=== PATIENT | male | born 1990 | race Asian ===

== ENCOUNTER 2019-10-23 14:18 | Emergency (ER) | payer OTHER ==
--- NOTE | 2019-10-23 14:29 | ED ---
Complex/Multi-Sys Presentation - HPI Summary HPI Summary: 29 year old M presenting to [facility] with a chief complaint of a headache secondary to a cough since 4 days ago, worse since today. Patient reports initially having a sore throat and fever. He was tested 4 days ago at [place] for COVID-19 and the results are pending. He denies any recent fevers or exposure to COVID-19. The patient has been self quarantining. Medication list reviewed. Allergy list reviewed. - History Of Current Complaint Time Seen by Provider: 10/23/19 14:27 Hx Obtained From: Patient Onset/Duration: Lasting Days, Still Present Timing: Constant - Allergies/Home Medications Allergies/Adverse Reactions: Allergies Allergy/AdvReac Type Severity Reaction Status Date / Time No Known Allergies Allergy Verified 10/23/19 15:01 Home Medications: Home Medications Benzonatate CAP* [Tessalon 100 MG CAP*] 100 mg PO TID PRN 10 Days #30 cap [Rx] Benzonatate CAP* [Tessalon 100 MG CAP*] 100 mg PO TID PRN 10 Days #30 cap [Rx] PMH/Surg Hx/FS Hx/Imm Hx Endocrine/Hematology History: Denies: Hx Diabetes Cardiovascular History: Denies: Hx Hypertension - Surgical History Surgical History: None - Family History Known Family History: Negative: Hypertension - Social History Alcohol Use: None Hx Substance Use: No Substance Use Type: Reports: None Hx Tobacco Use: No Smoking Status (MU): Never Smoked Tobacco Review of Systems Positive: Fever Positive: Sore Throat Positive: Cough Positive: Headache All Other Systems Reviewed And Are Negative: Yes Physical Exam - Summary Physical Exam Summary: Constitutional: Well-developed, Well-nourished, Alert. (-) Distressed Skin: Warm, Dry HENT: Normocephalic; Atraumatic Eyes: Conjunctiva normal Neck: Musculoskeletal ROM normal neck. (-) JVD, (-) Stridor, (-) Nuchal rigidity Cardio: Rhythm regular, rate normal, Heart sounds normal; Intact distal pulses; Radial pulses are 2+ and symmetric. (-) Murmur Pulmonary/Chest wall: Effort normal. (-) Respiratory distress, (-) Wheezes, (-) Rales Abd: Soft, (-) tenderness, (-) Distension, (-) Guarding, (-) Rebound Musculoskeletal: (-) Edema Lymph: (-) Cervical adenopathy Neuro: Alert, Oriented x3 Psych: Mood and affect Normal Triage Information Reviewed: Yes Vital Signs Reviewed: Yes Procedures - Sedation Patient Received Moderate/Deep Sedation with Procedure: No Diagnostics - Laboratory Lab Statement: Any lab studies that have been ordered have been reviewed, and results considered in the medical decision making process. - Radiology Chest x-ray Radiology Interpretation Completed By: Radiologist Summary of Radiographic Findings: NO ACTIVE CARDIOPULMONARY DISEASE IS NOTED. ED physician has reviewed this report. Complex Multi-Symp Course/Dx Course Of Treatment: 29 y/o male w URI. Patient presenting with URI symptoms. Patient is pending COVID-19 testing. Patient well appearing, with stable vitals. Patient does not have increased work of breathing, productive cough to suggest pneumonia. CXR unremarkable. No neck pain or nuchal rigidity. Tolerating by mouth. Patient given strict instructions on quarantine, follow- up with department of health, and return precautions. Plan for discharge w symptomatic control and will return for worsening symptoms. - Diagnoses Provider Diagnoses: Cough Discharge ED - Sign-Out/Discharge Documenting (check all that apply): Patient Departure - Discharge Plan Condition: Stable Disposition: HOME Prescriptions: Benzonatate CAP* [Tessalon 100 MG CAP*] 100 mg PO TID PRN 10 Days #30 cap PRN Reason: Cough Benzonatate CAP* [Tessalon 100 MG CAP*] 100 mg PO TID PRN 10 Days #30 cap PRN Reason: Cough Patient Education Materials: Upper Respiratory Infection (ED) Forms: COVID-19 Tested & Isolation Referrals: [facility] Loy CORTEZ [Primary Care Provider] - Additional Instructions: You were seen in the emergency department for coronavirus rule out. The Health Department will call you with the results of your lab test. You are in quarantine, this means she should stay in your house. You should wear a mask you're outside of your personal room. We encourage handwashing as well as limited contact with other people including the elderly and the immunocompromised. If any studies were not completed at the time of discharge you will be called with the relevant results. Please follow up with your primary care doctor in next 2-3 days and return to emergency department for trouble breathing, worsening or concerning symptoms. It was a pleasure taking care of you today. - Billing Disposition and Condition Condition: STABLE Disposition: Home - Attestation Statements Document Initiated by Dawood: Yes Documenting Scribe: Heide Ivan Provider For Whom Dawood is Documenting (Include Credential): Osmel Sam MD Scribe Attestation: IHeide, scribed for Osmel Sam MD on 10/23/19 at 1801. Scribe Documentation Reviewed: Yes Provider Attestation: The documentation as recorded by the Heide ortega accurately reflects the service I personally performed and the decisions made by , Osmel Sam MD Status of Scribe Document: Viewed
[2019-10-23] MEDS ORDERED: Benzonatate CAP* 100 MG PO ONE (14:49)
[2019-10-23 16:50] VITALS: BP 115/79
== END 2019-10-23 16:48 | disposition home or self-care (01) ==
LOC: ED 14:18
DX: J02.9 Acute pharyngitis, unspecified (principal); R05 Cough; R51 Headache; Z20.828 Contact with and (suspected) exposure to other viral communicable diseases
CPT/HCPCS: 71045; 99282; A9270-GY